=== PATIENT | male | born 1990 | race Caucasian/White ===

== ENCOUNTER 2017-03-08 19:02 | Emergency (ER) | payer OTHER ==
[~2017-03-08] VITALS: Ht 182.9 cm; Wt 75.9 kg
[2017-03-08] MEDS ORDERED: INDOCIN50 MG PO (21:05)
[2017-03-08] MEDS ORDERED: PERCOCET 5/31 TABLET PO (21:05)
[2017-03-08 21:46] VITALS: BP 146/90
== END 2017-03-08 21:48 | disposition home or self-care (01) ==
LOC: EME 19:02 → EXP 19:02
DX: M10.9 Gout, unspecified (principal)
CPT/HCPCS: 99281; 99283